=== PATIENT | male | born 1975 | race African-American/Black ===

== ENCOUNTER 2016-09-12 22:33 | Observation (INO) | payer OTHER ==
[~2016-09-12] VITALS: Ht 172.7 cm; Wt 83.2 kg
[~2016-09-12 22:33] MED LIST: FLEXERIL10 MG PO; MOTRIN800 MG PO
[2016-09-12 23:41] LABS: MCHC 34.7 G/DL (30.0-36.0); MCV 89.2 FL (86-99); MEAN PLAT.VOLUME 9.6 uM^3 (9.0-12.4); PLATELET COUNT 240 K/uL (156-360); RBC DIS.WIDTH-CV 12.8 % (11.8-14.6); RBC DIS.WIDTH-SD 41.8 % (39-53); RED BLOOD COUNT 4.26 M/uL (4.00-5.50); WHITE BLOOD COUNT 8.1 K/uL (4.1-10.2)
[2016-09-12 23:55] LABS: CHLORIDE 105 mEq/L (99-109); POTASSIUM 3.4 mEq/L (3.7-5.4); SODIUM 138 mEq/L (136-147)
[2016-09-12 23:57] LABS: GLUCOSE 119 mg/dL (70-99)
[2016-09-12 23:59] LABS: ANION GAP 9 MEQ/L (2-14)
[2016-09-13 00:01] LABS: GFR ESTIMATE (CALCULATED) > 59 mL/min/
[2016-09-13 00:02] LABS: UREA NITROGEN (BUN) 12 mg/dL (9-23)
[2016-09-13 00:05] LABS: TROP-I INTERPRETATION NEGATIVE; TROPONIN-I < 0.01 ng/mL (0.0-0.30)
[2016-09-13 05:12] VITALS: BP 119/76
[2016-09-13 07:35] LABS: D-DIMER ELISA < 0.15 mg/L FEU (< 0.57)
[2016-09-13 08:13] VITALS: BP 139/66
[2016-09-13 08:41] LABS: TROP-I INTERPRETATION NEGATIVE; TROPONIN-I < 0.01 ng/mL (0.0-0.30)
[2016-09-13 10:42] LABS: ANION GAP 8 MEQ/L (2-14); CHLORIDE 105 MEQ/L (99-109); GFR ESTIMATE (CALCULATED) > 59 mL/min/; GLUCOSE 105 mg/dL (70-99); POTASSIUM 3.6 MEQ/L (3.7-5.4); SAMPLE HEMOLYSIS CHECK 0; SAMPLE ICTERIC CHECK 0; SAMPLE LIPEMIA CHECK 0; SODIUM 140 MEQ/L (136-147); UREA NITROGEN (BUN) 10 mg/dL (9-23)
[2016-09-13 11:23] VITALS: BP 133/75
[2016-09-13 13:20] LABS: TROP-I INTERPRETATION NEGATIVE; TROPONIN-I < 0.01 ng/mL (0.0-0.30)
[2016-09-13 16:59] VITALS: BP 108/67
[2016-09-13 19:52] VITALS: BP 128/74
[2016-09-13 22:39] VITALS: BP 126/67
[2016-09-14 03:55] VITALS: BP 111/63
[2016-09-14 06:45] LABS: HEMATOCRIT 40.7 % (38.0-50.0); MCH 31.8 PG (29.0-34.0); MCHC 34.9 G/DL (30.0-36.0); MCV 91.1 FL (86-99); MEAN PLAT.VOLUME 10.3 uM^3 (9.0-12.4); PLATELET COUNT 241 K/uL (156-360); RBC DIS.WIDTH-SD 43.2 % (39-53); RED BLOOD COUNT 4.47 M/uL (4.00-5.50); WHITE BLOOD COUNT 7.5 K/uL (4.1-10.2)
[2016-09-14 06:56] LABS: INTER. NORMALIZED RATIO 1.1; PROTHROMBIN TIME 11.4 (9.2-11.2); PTT 25.4 (25-32)
[2016-09-14 07:11] LABS: ANION GAP 9 MEQ/L (2-14); CHLORIDE 106 MEQ/L (99-109); GFR ESTIMATE (CALCULATED) > 59 mL/min/; GLUCOSE 77 mg/dL (70-99); POTASSIUM 4.2 MEQ/L (3.7-5.4); SAMPLE HEMOLYSIS CHECK 0; SAMPLE ICTERIC CHECK 0; SAMPLE LIPEMIA CHECK 0; SODIUM 142 MEQ/L (136-147); UREA NITROGEN (BUN) 13 mg/dL (9-23)
[2016-09-14 07:50] VITALS: BP 101/58
[2016-09-14 12:00] VITALS: BP 131/62
== END 2016-09-14 14:00 | disposition home or self-care (01) ==
LOC: EME 22:33 → 5SOUTH 09-13 02:12 → EDOF 09-13 02:12 → 5SOUTH 09-13 04:58
PROVIDERS: Hospitalist; Internal Medicine; Nurse Practitioner Family
DX: R42 Dizziness and giddiness (principal); R94.31 Abnormal electrocardiogram [ECG] [EKG]; E87.6 Hypokalemia; R53.1 Weakness; R61 Generalized hyperhidrosis; Z79.82 Long term (current) use of aspirin
CPT/HCPCS: 70450; 71020; 80048; 84484; 85027; 85379; 85610; 85730; 93005; 93306; 99281; 99285; G0378; J1650; J2270; J7030